=== PATIENT | male | born 1940 | race Caucasian/White ===

== ENCOUNTER 2018-04-24 08:17 | Day surgery (SDC) | payer MEDICARE ==
[~2018-04-24 08:17] MED LIST: LIDOCAINE 2% (SDV) 5 ML INJ; PROPOFOL 200 MG INJ
== END 2018-04-24 13:34 | disposition home or self-care (01) ==
LOC: GIL 08:17
DX: K29.70 Gastritis, unspecified, without bleeding (principal); K64.4 Residual hemorrhoidal skin tags; I10 Essential (primary) hypertension
CPT/HCPCS: 43239; 88305; 88312; 93005